=== PATIENT | male | born 1995 | race Caucasian/White ===

== ENCOUNTER 2024-03-17 06:18 | Emergency (ER) | payer MEDICAID ==
[~2024-03-17] VITALS: Ht 172.7 cm; Wt 79.0 kg
[2024-03-17 06:23] VITALS: O2SAT 100
[2024-03-17] MEDS: KETOROLAC 15MG/ML VIAL IM ONE (07:50)
[2024-03-17] MEDS: CYCLOBENZAPRINE 10MG TABLET PO ONE (07:50)
[2024-03-17] MEDS ORDERED: CYCL10TA21 MT (14:06)
[2024-03-17] MEDS ORDERED: NAPR500T7 MT (14:06)
[2024-03-17 14:15] VITALS: BP 145/88; PULSE 70; RESP 15; TEMP 36.78072; O2SAT 100
== END 2024-03-17 14:15 | disposition home or self-care (01) ==
LOC: ER 06:18
DX: M54.9 Dorsalgia, unspecified (principal)
CPT/HCPCS: 99285; 71250; 96372; J1885

== ENCOUNTER 2024-07-20 17:42 | Emergency (ER) | payer MEDICAID ==
[~2024-07-20] VITALS: Ht 177.8 cm; Wt 80.0 kg
[~2024-07-20 17:42] MED LIST: CYCL10TA21 MT; NAPR-1486 MT
[2024-07-20 17:50] VITALS: O2SAT 100
[2024-07-20] MEDS ORDERED: IBUPROFEN 800MG TABLET PO NR (21:50)
[2024-07-20] MEDS ORDERED: TRAMADOL 50MG TABLET PO NR (21:51)
[2024-07-20 23:06] LABS: HEMATOCRIT. 42.8 % (42.0-52.0); HEMOGLOBIN. 14.7 g/dL (14.0-18.0); MEAN CORPUSCULAR HEMOGLOBIN 29.6 pg (28.0-32.0); MEAN CORPUSCULAR HGB CONC 34.3 g/dL (31.0-37.0); MEAN CORPUSCULAR VOLUME 86.3 fL (80.0-94.0); MEAN PLATELET VOLUME 7.5 fl (7.4-10.4); PLATELET 207 x1000/uL (130-400); RED BLOOD CELL COUNT 4.95 mill/uL (4.7-6.1); RED CELL DISTRIBUTION WIDTH 12.9 % (11.6-14.6)
[2024-07-20 23:07] LABS: CHLORIDE 101 mEq/L (98-107); DIFFERENTIAL COMMENT 1; POTASSIUM 3.5 mEq/L (3.5-5.1); SODIUM 136 mEq/L (136-145)
[2024-07-20 23:08] LABS: CALCIUM 9.6 mg/dL (8.7-10.4); CARBON DIOXIDE 27 mEq/L (21-32)
[2024-07-20 23:13] LABS: CREATININE 0.8 mg/dL (0.6-1.3); GLUCOSE 101 mg/dL (70-105); UREA NITROGEN BLOOD 11 mg/dL (9-23)
[2024-07-20 23:20] LABS: ATYPICAL LYMPHOCYTES 2; PLATELET ESTIMATE NORMAL
[2024-07-21] MEDS: IBUPROFEN 800MG TABLET PO NR (01:24)
[2024-07-21] MEDS: TRAMADOL 50MG TABLET PO NR (01:25)
[2024-07-21] MEDS ORDERED: TRAM50TA3 MT (03:24)
[2024-07-21] MEDS ORDERED: IBUP-2029 MT (03:24)
[2024-07-21 03:44] VITALS: BP 118/76; PULSE 85; RESP 18; TEMP 36.72516; O2SAT 98
== END 2024-07-21 03:55 | disposition home or self-care (01) ==
LOC: ER 17:42
DX: R07.89 Other chest pain (principal); Z79.1 Long term (current) use of non-steroidal anti-inflammatories (NSAID)
CPT/HCPCS: 36415; 71045; 80048; 85025; 85379; 93005; 99285

== ENCOUNTER 2024-07-24 08:22 | Emergency (ER) | payer MEDICAID ==
[~2024-07-24] VITALS: Ht 177.8 cm; Wt 70.0 kg
[~2024-07-24 08:22] MED LIST changes: +IBUP-2029 MT; +TRAM50TA3 MT
[2024-07-24 08:30] VITALS: TEMP 98.5; O2SAT 98
[2024-07-24 08:31] VITALS: O2SAT 98
[2024-07-24 09:29] VITALS: BP 119/71; PULSE 72; RESP 18
[2024-07-24] MEDS: IBUPROFEN 600MG TABLET PO ONE (09:29)
[2024-07-24] MEDS ORDERED: CEFP200T13 MT (10:17)
[2024-07-24] MEDS ORDERED: AZIT250T12 MT (10:17)
== END 2024-07-24 12:17 | disposition home or self-care (01) ==
LOC: ER 08:22
DX: J18.9 Pneumonia, unspecified organism (principal); Z79.1 Long term (current) use of non-steroidal anti-inflammatories (NSAID)
CPT/HCPCS: 71045; 99283

== ENCOUNTER 2024-08-06 08:38 | Emergency (ER) | payer MEDICAID ==
[~2024-08-06] VITALS: Ht 170.2 cm; Wt 72.0 kg
[~2024-08-06 08:38] MED LIST changes: +AZIT250T12 MT; +CEFP200T13 MT
[2024-08-06 08:51] VITALS: O2SAT 99
[2024-08-06 09:47] LABS: BASOPHILS % 0.3 % (0.0-2.0); EOSINOPHILS % 2.2 % (0.0-5.0); HEMATOCRIT. 39.5 % (42.0-52.0); HEMOGLOBIN. 13.3 g/dL (14.0-18.0); LYMPHOCYTES % 14.3 % (20.0-50.0); MEAN CORPUSCULAR HEMOGLOBIN 29.7 pg (28.0-32.0); MEAN CORPUSCULAR HGB CONC 33.7 g/dL (31.0-37.0); MEAN PLATELET VOLUME 6.5 fl (7.4-10.4); MONOCYTES % 5.6 % (2.0-8.0); NEUTROPHILS % 77.6 % (40.0-76.0); PLATELET 807 x1000/uL (130-400); RED BLOOD CELL COUNT 4.49 mill/uL (4.7-6.1); RED CELL DISTRIBUTION WIDTH 14.3 % (11.6-14.6); WHITE BLOOD COUNT 8.8 x1000/uL (4.5-11.0)
[2024-08-06 10:00] LABS: CHLORIDE 106 mEq/L (98-107); POTASSIUM 3.7 mEq/L (3.5-5.1); SODIUM 140 mEq/L (136-145)
[2024-08-06 10:01] LABS: CALCIUM 9.5 mg/dL (8.7-10.4); CARBON DIOXIDE 26 mEq/L (21-32)
[2024-08-06 10:06] LABS: CREATININE 0.7 mg/dL (0.6-1.3); GLUCOSE 79 mg/dL (70-105); UREA NITROGEN BLOOD 8 mg/dL (9-23)
[2024-08-06] MEDS ORDERED: MORPHINE SULFATE 4 MG/ML INJ (FOR IV/IM USE) IV ONE (11:00)
[2024-08-06] MEDS ORDERED: CEFTRIAXONE 1GM/50ML 50 ML IV ONE (11:00)
[2024-08-06] MEDS ORDERED: ONDANSETRON HCL 4MG/2ML INJ IV ONE (11:00)
[2024-08-06] MEDS ORDERED: AZITHROMYCIN 250 MG in DEXT 5% WATER 250 ML IV SCH (11:00)
[2024-08-06] MEDS ORDERED: AZITHROMYCIN 500MG/250ML 250 ML IV SCH (11:30)
[2024-08-06] MEDS ORDERED: CEFTRIAXONE 1GM/50ML 50 ML IV NR (14:30)
[2024-08-06] MEDS: AZITHROMYCIN 500MG/250ML 250 ML IV SCH (15:03)
[2024-08-06] MEDS: MORPHINE SULFATE 4 MG/ML INJ (FOR IV/IM USE) IV NR (15:03)
[2024-08-06] MEDS: ONDANSETRON HCL 4MG/2ML INJ IV NR (15:03)
[2024-08-06 16:59] VITALS: BP 137/80; PULSE 88; RESP 21; TEMP 37.05852; O2SAT 95
== END 2024-08-06 17:08 | disposition short-term general hospital (02) ==
LOC: ER 08:38 → EDBEDREQ 11:07 → ER 17:08
DX: J18.9 Pneumonia, unspecified organism (principal); Z79.1 Long term (current) use of non-steroidal anti-inflammatories (NSAID); Z98.890 Other specified postprocedural states
CPT/HCPCS: 80048; 83605; 85025; 36415; 71045; 96365; 96375; 99285; J0456; J2405; J2270; Z7610; J7060